=== PATIENT | male | born 1995 | race Caucasian/White ===

== ENCOUNTER 2025-06-30 14:03 | Emergency (ER) | payer OTHER ==
[~2025-06-30] VITALS: Ht 185.4 cm; Wt 63.7 kg
[2025-06-30] MEDS: NS (Normal Saline) 0.9% 1,000 ML IV ONE (15:03)
[2025-06-30] MEDS: FAMOTIDINE 20 MG/2 ML VIAL IVP ONE (15:04)
[2025-06-30] MEDS: ACETAMINOPHEN *IV* 1,000 MG in IV 1 EA IV ONE (15:04)
[2025-06-30 15:21] LABS: BASO # 0.0 10^3/uL (0.0-0.2); BASO % 0.3 % (0.0-1.0); EOS # 0.1 10^3/uL (0.0-0.5); EOS % 0.8 % (0.0-3.0); LYMPH # 1.9 10^3/uL (1.5-5.0); LYMPH % 29.8 % (24.0-44.0); MONO # 0.6 10^3/uL (0.0-0.8); MONO % 9.2 % (2.0-8.0); NEUTROPHILS # 3.8 10^3/uL (1.5-8.5); NEUTROPHILS % 59.7 % (36.0-66.0); PLATELET COUNT, AUTOMATED 184 10^3/uL (150-450)
[2025-06-30 15:50] LABS: ALT/SGPT 12 U/L (7.0-40); AST/SGOT 12 U/L (<34); CALCIUM LEVEL 9.2 MG/DL (8.5-10.1); CARBON DIOXIDE LEVEL 28 MMOL/L (20-31); CHLORIDE LEVEL 104 MMOL/L (98-107); CREATININE FOR GFR 0.98 MG/DL (0.70-1.30); GLOMERULAR FILTRATION RATE > 90.0 (>60); POTASSIUM SERUM 3.6 MMOL/L (3.5-5.1); SODIUM LEVEL 140 MMOL/L (136-145)
[2025-06-30] MEDS ORDERED: ONDA-282 PO (16:26)
[2025-06-30] MEDS ORDERED: PEPC1TAB5 PO (16:26)
[2025-06-30 16:51] VITALS: BP 110/64; TEMP 98; O2SAT 100
== END 2025-06-30 16:53 | disposition home or self-care (01) ==
LOC: M ED 14:03
DX: K29.00 Acute gastritis without bleeding (principal); R10.13 Epigastric pain; Z79.899 Other long term (current) drug therapy
CPT/HCPCS: 74021; 80048; 80076; 83605; 83690; 85025; 87486; 87581; 87633; 87798; 96361; 96365; 96375; 99284; J0131; J1308